=== PATIENT | female | born 1990 | race Caucasian/White ===

== ENCOUNTER 2016-06-15 15:21 | Emergency (ER) | payer BC, MEDICAID ==
[2016-06-15 15:42] VITALS: TEMP 98.1
--- NOTE | 2016-06-15 16:42 | C.PDOC ---
History Of Present Illness 26 yr old female presents to the ER with complaints of right wrist pain for the past 2 days. 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 Reports the pain is exacerbated by movement and relieved by use of ibuprofen 3 times a day. Patient denies direct trauma, injury, chest pain, back pain, weakness or numbness. Time Seen by Provider: 06/15/16 15:48 Chief Complaint (Nursing): Finger,Hand,&Wrist History/Exam Limitations: no limitations Onset/Duration Of Symptoms: Days (2) Current Symptoms Are (Timing): Still Present Past Medical History Reviewed: Historical Data, Nursing Documentation, Vital Signs Vital Signs: Last Vital Signs Temp 98.1 F 06/15/16 15:40 Pulse 100 H 06/15/16 15:40 Resp 17 06/15/16 15:40 BP 117/80 06/15/16 15:40 Pulse Ox 100 06/15/16 17:55 Surgical History: Appendectomy Family History: States: No Known Family Hx - Social History Hx Alcohol Use: No Hx Substance Use: No - Immunization History Hx Tetanus Toxoid Vaccination: No Hx Influenza Vaccination: No Hx Pneumococcal Vaccination: No Review Of Systems Except As Marked, All Systems Reviewed And Found Negative. Cardiovascular: Negative for: Chest Pain Musculoskeletal: Positive for: Hand Pain (Right wrist pain ). Negative for: Back Pain Neurological: Negative for: Weakness, Numbness Physical Exam - Physical Exam Appears: Non-toxic, No Acute Distress Skin: Warm, Dry, No Rash Head: Atraumatic, Normacephalic Oral Mucosa: Moist Neck: Normal, Normal ROM, Supple Chest: Symmetrical, No Tenderness Cardiovascular: Rhythm Regular, No Murmur Respiratory: Normal Breath Sounds, No Rales, No Rhonchi, No Stridor, No Wheezing Gastrointestinal/Abdominal: No Soft Extremity: Other (Right Wrist - Tenderness to the wrist radaiting to the thumb. Tenderness on supine and planter. Snuff box tenderness. ) ED Course And Treatment O2 Sat by Pulse Oximetry: 100 - Other Rad X-Ray - Right Wrist X-Ray: Viewed By Me, Read By Radiologist Interpretation: PROCEDURE: Right Wrist Radiographs. . HISTORY: non traumatic pain. COMPARISON: None. FINDINGS: BONES: Normal. No fracture. JOINTS: Normal. No dislocation. SOFT TISSUES: Normal. OTHER FINDINGS: Approximately 2 mm negative ulnar variance. IMPRESSION: No fracture or gross osteoarthrosis.If clinical symptoms persist and warrant, consider more sensitive evaluation with MRI . Disposition Counseled Patient/Family Regarding: Diagnosis, Need For Followup - Disposition Referrals: [facility] [Outside] Disposition: HOME/ ROUTINE Disposition Time: 17:44 Prescriptions: Naproxen [Naprosyn] 1 tab PO BID PRN #25 tab PRN Reason: Pain Naproxen [Naprosyn] 1 tab PO BID PRN #25 tab PRN Reason: Pain Instructions: Tendinitis (ED) - Clinical Impression Clinical Impression: Tendonitis of wrist, right - Scribe Statement The provider has reviewed the documentation as recorded by the Lani Liang Provider Attestation: All medical record entries made by the Lani were at my direction and personally dictated by me. I have reviewed the chart and agree that the record accurately reflects my personal performance of the history, physical exam, medical decision making, and the department course for this patient. I have also personally directed, reviewed, and agree with the discharge instructions and disposition.
--- NOTE | 2016-06-15 17:08 | RAD ---
PROCEDURE: Right Wrist Radiographs. HISTORY: non traumatic pain COMPARISON: None. FINDINGS: BONES: Normal. No fracture. JOINTS: Normal. No dislocation. SOFT TISSUES: Normal. OTHER FINDINGS: Approximately 2 mm negative ulnar variance IMPRESSION: No fracture or gross osteoarthrosis.If clinical symptoms persist and warrant, consider more sensitive evaluation with MRI .
[2016-06-15 17:59] VITALS: BP 124/75; PULSE 85; RESP 18; O2SAT 98
== END 2016-06-15 18:01 | disposition home or self-care (01) ==
LOC: C.ER 15:21
DX: M77.9 Enthesopathy, unspecified (principal)

== ENCOUNTER 2017-08-22 12:29 | Emergency (ER) | payer MEDICAID ==
[2017-08-22 12:37] VITALS: BP 106/67; PULSE 84; RESP 16; TEMP 98.4; O2SAT 98
[2017-08-22] MEDS ORDERED: Tmp-Smz 800 mg-160 mg DS Tab PO STA (12:54)
[2017-08-22] MEDS ORDERED: Lidocaine 1% Inj (20ml) INFIL STA (12:54)
[2017-08-22] MEDS ORDERED: Tmp-Smz 800 mg-160 mg DS Tab ONE (13:01)
[2017-08-22] MEDS ORDERED: Lidocaine Hydrochloride 5 ML INJ ONE (13:02)
--- NOTE | 2017-08-22 13:24 | C.PDOC ---
History Of Present Illness 27 year old female presents to the ED for evaluation of a lump to her tailbone area noted two days ago. Patient reports history of prior cysts to the area 6 months ago, that needed drainage. Patient denies fever, chills. Time Seen by Provider: 08/22/17 12:50 Chief Complaint (Nursing): Abnormal Skin Integrity History Per: Patient History/Exam Limitations: no limitations Onset/Duration Of Symptoms: Days (2) Current Symptoms Are (Timing): Still Present Additional History Per: Patient Past Medical History Reviewed: Historical Data, Nursing Documentation, Vital Signs Vital Signs: Last Vital Signs Temp 98.4 F 08/22/17 12:35 Pulse 84 08/22/17 12:35 Resp 16 08/22/17 13:38 BP 106/67 08/22/17 12:35 Pulse Ox 98 08/22/17 18:26 - Medical History PMH: No Chronic Diseases Surgical History: Appendectomy Family History: States: Unknown Family Hx - Social History Hx Alcohol Use: No Hx Substance Use: No - Immunization History Hx Tetanus Toxoid Vaccination: No Hx Influenza Vaccination: No Hx Pneumococcal Vaccination: No Review Of Systems Constitutional: Negative for: Fever, Chills Skin: Positive for: Other (lump noted to tailbone area ) Physical Exam - Physical Exam Appears: Non-toxic, No Acute Distress Skin: Normal Color, Warm, Dry, Other (1x2cm tender, fluctuant, and mildly erythematous mass to left conor cleft ) Extremity: Normal ROM Neurological/Psych: Oriented x3, Normal Speech, Normal Cognition Gait: Steady ED Course And Treatment O2 Sat by Pulse Oximetry: 98 (on RA) Pulse Ox Interpretation: Normal - Incision & Drainage Of Abscess Anesthesia: Lidocaine 1% Prep Used: Sterile Water, Betadine Procedure: Incised W/Scalpel Blade#: (11), Drained Pus, Irrigated Cavity W/ Saline Medical Decision Making Medical Decision Making: Impression: 27 year old female with lump to tailbone area Plan: * Bactrim PO * Incision and Drainage * reassess and disposition Progress: Bactrim PO administered. Fluctuant area to left conor cleft. Local anesthesia achieved with 1% lidocaine without epinephrine. Area cleaned with 10% betadine solution. Incision made with sterile #11 blade scalpel. Small amount of purulent discharge expressed. Wound dressed with dry, sterile dressing. Pt tolerated well. On re-examination, patient is resting comfortably, showing no signs of distress and is stable for discharge with antibiotics. Patient is advised to follow up with her PMD within 1-2 days for further evaluation and/or return to the ED if symptoms persist or worsen. Disposition Counseled Patient/Family Regarding: Diagnosis, Need For Followup, Rx Given - Disposition Referrals: Farzaneh Lobo MD [Medical Doctor] - Mickey Steele MD [Staff Provider] - Disposition: HOME/ ROUTINE Disposition Time: 13:22 Condition: STABLE Additional Instructions: Take antibiotics as prescribed Change dressing daily Follow up with primary doctor or surgeon for further care Prescriptions: Cephalexin [cephalexin] 500 mg PO Q12 #14 cap Ibuprofen [Motrin] 600 mg PO Q8 #30 tab Sulfamethoxazole/Trimethoprim [Bactrim DS 800 mg-160 mg] 1 tab PO BID #14 tab Instructions: Abscess Incision and Drainage (DC) Forms: T[employer] (Rwandan) - POA Present On Arrival: None - Clinical Impression Clinical Impression: Pilonidal abscess of conor cleft - PA / PANEL COVERER / Resident Statement MD/DO has reviewed & agrees with the documentation as recorded. - Scribe Statement The provider has reviewed the documentation as recorded by the Scribe (Giuliana Hogue) All medical record entries made by the Scribe were at my direction and personally dictated by me. I have reviewed the chart and agree that the record accurately reflects my personal performance of the history, physical exam, medical decision making, and the department course for this patient. I have also personally directed, reviewed, and agree with the discharge instructions and disposition.
== END 2017-08-22 13:38 | disposition home or self-care (01) ==
LOC: C.ER 12:29
DX: L05.01 Pilonidal cyst with abscess (principal)

== ENCOUNTER 2017-09-09 11:09 | Day surgery (SDC) | payer MEDICAID ==
[2017-09-07 10:31] VITALS: BMI 27.4
[2017-09-09] MEDS ORDERED: ceFAZolin 1 gm in NS 1 GM/100 ML BAG IVPB ONE (12:47)
[2017-09-09] MEDS ORDERED: Midazolam 2 MG/2 ML VIAL ONE (12:48)
[2017-09-09] MEDS ORDERED: Propofol 10 mg/ml Inj (20 ML) ONE ×2 (12:50)
--- NOTE | 2017-09-09 13:54 | PCM.SURG1 ---
Surgeon's Initial Post Op Note - Surgeon's Notes Surgeon: Dr. Grimes Rod Straightener: Tamy Mercado PGY2 Type of Anesthesia: General Endo Anesthesia Administered By: ADAMS Pre-Operative Diagnosis: L buttocks abscess Operative Findings: coccygeal cyst 2x1cm Post-Operative Diagnosis: coccygeal cyst Operation Performed: excision of coccygeal cyst primary closure Specimen/Specimens Removed: coccygeal cyst 2x1cm Estimated Blood Loss: EBL {In ML}: 10 Blood Products Given: N/A Drains Used: No Drains Post-Op Condition: Good Date of Surgery/Procedure: 09/09/17 Time of Surgery/Procedure: 13:54
[2017-09-09] MEDS ORDERED: Oxycodone/Acetaminophen 5/325 mg Tab PO PRN (13:58)
[2017-09-09] MEDS: HYDROmorphone 0.5 mg/0.5 ml ISec IVP PRN ×4 (14:05→14:57)
[2017-09-09 15:10] VITALS: TEMP 97.8
[2017-09-09 16:12] VITALS: RESP 16
[2017-09-09 18:14] VITALS: BP 124/77; PULSE 96; O2SAT 99
--- NOTE | 2017-09-11 00:59 | OP ---
PROCEDURE DATE: 09/09/2017 PREOPERATIVE DIAGNOSIS: Left buttock pilonidal abscess. POSTOPERATIVE DIAGNOSIS: Infected coccygeal cyst. PROCEDURE: Excision of pilonidal coccygeal cyst. SURGEON: Arnel Grimes MD. CHIEF UNDERWRITER: Dr. Mercado. TYPE OF ANESTHESIA: General. ANESTHESIOLOGIST: FARNAZ Branham. DESCRIPTION OF PROCEDURE: With the patient anesthetized, she was placed in the prone position with the buttock taped slightly apart. The patient was noted to have an area of fluctuant swelling on the left medial buttock just lateral to the gluteal crease and a crescent shaped incision was marked including this area, which would allow the right buttock skin to be extended to the left of the gluteal crease. The crescentic shaped skin incision was made and taken down through the full thickness of skin and the indurated subcutaneous tissue was then dissected downwards surrounding the area of induration. As the midline was reached, there was noted to be a well formed inclusion type cyst extending down towards the coccyx and incontinuity with the cutaneous eruption. This cyst was completely excised along with the narrower area of indurated subcutaneous tissue. When this had been completed, hemostasis was achieved with cautery and the deep subcutaneous tissues were approximated with 3-0 Vicryl interrupted sutures. The flaps were freed up on each side just superficial to the muscle fascial plain allowing the skin to be closed with a combination of mattress sutures of 3-0 Prolene and simple interrupted sutures of 5-0 Prolene. A dry sterile dressing with fluffy compression was applied. The patient tolerated the procedure well and transferred to the recovery room in stable condition. Estimated blood loss for the procedure was 10 mL. Arnel Grimes MD
== END 2017-09-09 18:05 | disposition home or self-care (01) ==
LOC: C.SDS 11:09
PROVIDERS: ATTEND Specialist
DX: L05.91 Pilonidal cyst without abscess (principal)
CPT/HCPCS: 11770; 88304; J0690; J1170; J2250; J2704; J3010

== ENCOUNTER 2017-11-23 02:49 | Emergency (ER) | payer MEDICAID ==
[2017-11-23 02:49] VITALS: BMI 27.4
[2017-11-23 02:56] VITALS: TEMP 97.5
[2017-11-23 03:23] LABS: URINE BILIRUBIN NEGATIVE (NEGATIVE); URINE GLUCOSE (UA) NORMAL (Normal); URINE PROTEIN NEGATIVE (NEGATIVE); URINE UROBILINOGEN NORMAL mg/dL (0.2-1.0)
[2017-11-23 03:38] LABS: URINE CLARITY SLIGHT-CLOUDY (Clear); URINE COLOR LIGHT RED (YELLOW)
[2017-11-23] MEDS ORDERED: Sodium Chloride 0.9% 500 ML IV ONE (03:38)
[2017-11-23 03:39] LABS: HCG,QUALITATIVE URINE NEGATIVE (NEGATIVE); URINE BLOOD 3+ (NEGATIVE); URINE LEUKOCYTE ESTERASE TRACE Leu/uL (Negative)
[2017-11-23] MEDS ORDERED: Sodium Chloride 0.9% 1,000 ML ONE (03:45)
[2017-11-23 03:54] LABS: BASO # 0.1 K/uL (0.0-0.2); BASO % 1.3 % (0.0-2.0); EOS # 0.1 K/uL (0.0-0.7); EOS % 1.3 % (0.0-4.0); HEMOGLOBIN 11.7 g/dL (11.0-16.0); LYMPH # 2.3 K/uL (1.0-4.3); LYMPH % 31.1 % (20.0-40.0); MEAN CORPUSCULAR HEMOGLOBIN 26.3 pg (27.0-31.0); MEAN CORPUSCULAR HGB CONC 34.2 g/dL (33.0-37.0); MEAN PLATELET VOLUME 7.9 fL (7.2-11.7); MONO # 0.8 K/uL (0.0-0.8); MONO % 10.2 % (0.0-10.0); NEUT # 4.2 K/uL (1.8-7.0); NEUT % 56.1 % (50.0-75.0); NRBC % 0.1 % (0.0-2.0); RBC 4.46 Mil/uL (3.80-5.20); RED CELL DISTRIBUTION WIDTH 14.2 % (11.5-14.5); WHITE BLOOD COUNT 7.4 K/uL (4.8-10.8)
[2017-11-23 04:07] LABS: ALB/GLOB RATIO 1.4 (1.0-2.1); ALBUMIN 4.3 g/dL (3.5-5.0); ALT/SGPT 22 U/L (9-52); AST/SGOT 15 U/L (14-36); BLOOD UREA NITROGEN 13 mg/dL (7-17); CALCIUM 9.5 mg/dl (8.6-10.4); GFR NON-AFRICAN AMERICAN > 60
--- NOTE | 2017-11-23 04:22 | C.PDOC ---
History Of Present Illness 27 year old female presents to the ED c/o suprapubic pain that started earlier today. Patient reports her menses started yesterday, she usually has pain with her menses. Patient states this time pain feel different, stronger. Patient states she did not take any medication for her pain. Patient denies fever, chills, nausea, vomit, dysuria, hematuria, back pain. Time Seen by Provider: 11/23/17 03:10 Chief Complaint (Nursing): Abdominal Pain History Per: Patient History/Exam Limitations: no limitations Onset/Duration Of Symptoms: Hrs Current Symptoms Are (Timing): Still Present Location Of Pain/Discomfort: Suprapubic Radiation Of Pain To:: None Quality Of Discomfort: "Pain" Associated Symptoms: Urinary Symptoms. denies: Nausea, Vomiting, Diarrhea Exacerbating Factors: None Alleviating Factors: None Recent travel outside of the [place]: No Additional History Per: Patient Abnormal Vaginal Bleeding: No Last Menstral Period: now Past Medical History Reviewed: Historical Data, Nursing Documentation, Vital Signs Vital Signs: Last Vital Signs Temp 97.5 F L 11/23/17 03:01 Pulse 81 11/23/17 03:01 Resp 18 11/23/17 03:01 BP 129/85 11/23/17 03:01 Pulse Ox 99 11/23/17 04:27 - Medical History PMH: Asthma (SEASONAL), Kidney Stones Surgical History: Appendectomy Family History: States: Unknown Family Hx - Social History Hx Alcohol Use: No Hx Substance Use: No - Immunization History Hx Tetanus Toxoid Vaccination: No Hx Influenza Vaccination: No Hx Pneumococcal Vaccination: No Review Of Systems Constitutional: Negative for: Fever, Chills Gastrointestinal: Positive for: Abdominal Pain. Negative for: Nausea, Vomiting Genitourinary: Negative for: Dysuria, Hematuria Skin: Negative for: Rash Neurological: Negative for: Weakness, Numbness Physical Exam - Physical Exam Appears: Non-toxic, No Acute Distress Skin: Normal Color, Warm, Dry Head: Atraumatic, Normacephalic Eye(s): bilateral: Normal Inspection Neck: Normal ROM, Supple Chest: Symmetrical Cardiovascular: Rhythm Regular Respiratory: Normal Breath Sounds, No Rales, No Rhonchi, No Wheezing Gastrointestinal/Abdominal: Soft, Tenderness (suprapubic), No Distention, No Guarding, No Rebound, Other (RLQ scar s/p appendectomy)) Back: No CVA Tenderness Extremity: Normal ROM, No Tenderness, No Swelling Neurological/Psych: Oriented x3, Normal Speech Gait: Steady ED Course And Treatment - Laboratory Results Result Diagrams: 11/23/17 03:51 11/23/17 03:51 O2 Sat by Pulse Oximetry: 99 (ON RA) Pulse Ox Interpretation: Normal Progress Note: Plan: - Labs. - Iv fluids. - Toradol 30 mg IVP. - UA. Patient is resting comfortably, abdomen remains soft, and patient is tolerating PO. Patient feels comfortable going home. Patient will be discharged home. Disposition Counseled Patient/Family Regarding: Diagnosis, Need For Followup, Rx Given - Disposition Referrals: [facility] [Outside] Disposition: HOME/ ROUTINE Disposition Time: 04:37 Condition: STABLE Additional Instructions: Take medications as dirrected Return to ER if woose Prescriptions: Ibuprofen [Motrin] 600 mg PO Q6H #20 tab Instructions: Menstrual Cramps (DC) Forms: [employer] (Brazilian) - Clinical Impression Clinical Impression: Dysmenorrhea - PA / SPECIAL SHOPPER / Resident Statement MD/DO has reviewed & agrees with the documentation as recorded. - Scribe Statement The provider has reviewed the documentation as recorded by the Scribe Jonathan Delgado All medical record entries made by the Scribe were at my direction and personally dictated by me. I have reviewed the chart and agree that the record accurately reflects my personal performance of the history, physical exam, medical decision making, and the department course for this patient. I have also personally directed, reviewed, and agree with the discharge instructions and disposition.
[2017-11-23 05:08] VITALS: BP 103/67; PULSE 73; RESP 20; O2SAT 100
== END 2017-11-23 05:07 | disposition home or self-care (01) ==
LOC: C.ER 02:49
DX: N94.6 Dysmenorrhea, unspecified (principal)
CPT/HCPCS: 80053; 81001; 84703; 85025; 96361; 96374; 99283; J1885; J7040

== ENCOUNTER 2017-11-27 17:43 | Emergency (ER) | payer MEDICAID ==
[2017-11-27 17:43] VITALS: BMI 27.4
[2017-11-27 17:56] VITALS: O2SAT 100
[2017-11-27 18:58] LABS: SQUAMOUS EPITHIAL 2 /hpf (0-5); URINE BACTERIA RARE (<OCC); URINE BILIRUBIN NEGATIVE (NEGATIVE); URINE BLOOD 3+ (NEGATIVE); URINE CLARITY Hazy (Clear); URINE COLOR Yellow (YELLOW); URINE GLUCOSE (UA) NORMAL (Normal); URINE LEUKOCYTE ESTERASE TRACE Leu/uL (Negative); URINE PROTEIN 1+ mg/dL (NEGATIVE); URINE UROBILINOGEN NORMAL mg/dL (0.2-1.0)
[2017-11-27 18:59] LABS: HCG,QUALITATIVE URINE NEGATIVE (NEGATIVE)
[2017-11-27] MEDS ORDERED: Sodium Chloride 0.9% 1,000 ML IV ONE (19:00)
[2017-11-27 19:20] LABS: BASO % 0.4 % (0.0-2.0); EOS % 0.4 % (0.0-4.0); HEMOGLOBIN 11.8 g/dL (11.0-16.0); LYMPH # 1.3 K/uL (1.0-4.3); LYMPH % 10.9 % (20.0-40.0); MEAN CELL VOLUME 78.4 fL (81.0-99.0); MEAN CORPUSCULAR HEMOGLOBIN 25.7 pg (27.0-31.0); MEAN CORPUSCULAR HGB CONC 32.8 g/dL (33.0-37.0); MEAN PLATELET VOLUME 8.6 fL (7.2-11.7); MONO # 0.7 K/uL (0.0-0.8); MONO % 5.7 % (0.0-10.0); NEUT # 9.5 K/uL (1.8-7.0); NEUT % 82.6 % (50.0-75.0); NRBC % 0.1 % (0.0-2.0); RBC 4.59 Mil/uL (3.80-5.20); RED CELL DISTRIBUTION WIDTH 14.3 % (11.5-14.5); WHITE BLOOD COUNT 11.5 K/uL (4.8-10.8)
[2017-11-27 19:33] LABS: ALB/GLOB RATIO 1.2 (1.0-2.1); ALBUMIN 4.4 g/dL (3.5-5.0); ALT/SGPT 17 U/L (9-52); AST/SGOT 21 U/L (14-36); BLOOD UREA NITROGEN 11 mg/dL (7-17); GFR NON-AFRICAN AMERICAN > 60; LIPASE 42 U/L (23-300)
--- NOTE | 2017-11-27 20:15 | C.PDOC ---
"History Of Present Illness 27 year old female presents to the ER with a complaint of left lower quadrant pain and left lower back pain since this morning. Patient states the pain is constant and radiates from the back to the front but is not associated with vomiting, diarrhea, dysuria, or hematuria. She was seen on 11/23/17 for the same complaint and diagnosed with painful menstrual cramps. Time Seen by Provider: 11/27/17 19:08 Chief Complaint (Nursing): Abdominal Pain History Per: Patient History/Exam Limitations: no limitations Onset/Duration Of Symptoms: Hrs Current Symptoms Are (Timing): Still Present Location Of Pain/Discomfort: LLQ, Other (Left lower back) Radiation Of Pain To:: Other (From left lower back and left lower abdomen) Quality Of Discomfort: Unable To Describe Associated Symptoms: denies: Vomiting, Diarrhea, Urinary Symptoms Exacerbating Factors: None Alleviating Factors: None Recent travel outside of the [place]: No Abnormal Vaginal Bleeding: No Past Medical History Reviewed: Historical Data, Nursing Documentation, Vital Signs Vital Signs: Last Vital Signs Temp 99.0 F 11/27/17 17:53 Pulse 108 H 11/27/17 17:53 Resp 20 11/27/17 17:53 BP 121/76 11/27/17 17:53 Pulse Ox 100 11/27/17 20:53 - Medical History PMH: Asthma (SEASONAL), Kidney Stones Surgical History: Appendectomy Family History: States: Unknown Family Hx - Social History Hx Alcohol Use: No Hx Substance Use: No - Immunization History Hx Tetanus Toxoid Vaccination: No Hx Influenza Vaccination: No Hx Pneumococcal Vaccination: No Review Of Systems Except As Marked, All Systems Reviewed And Found Negative. Gastrointestinal: Positive for: Abdominal Pain Musculoskeletal: Positive for: Back Pain Physical Exam - Physical Exam Appears: Non-toxic, Other (Uncomfortable, Moderate pain) Skin: Normal Color, Warm, Dry Head: Atraumatic, Normacephalic Eye(s): bilateral: Normal Inspection Oral Mucosa: Moist Chest: Symmetrical, No Tenderness Cardiovascular: Rhythm Regular (Tachycardic) Respiratory: Normal Breath Sounds, No Rales, No Rhonchi, No Wheezing Gastrointestinal/Abdominal: Soft, Tenderness (LLQ), No Guarding, No Rebound Back: CVA Tenderness (Left) Neurological/Psych: Oriented x3, Normal Speech ED Course And Treatment - Laboratory Results Result Diagrams: 11/27/17 19:17 11/27/17 19:17 O2 Sat by Pulse Oximetry: 100 (Room air) Pulse Ox Interpretation: Normal - CT Scan/US ct abd/pelvis Other Rad Studies (CT/US): Read By Radiologist, Radiology Report Reviewed CT/US Interpretation: Name: SHAWN FIGUEROA Age: 27Years F Date: 11/27/2017. Requesting Physician: JHONY WISE : 1990. [facility] Procedure Ordered As Accession Number of. Images. CT ABDOMEN/PELVIS. WO. CT ABD PELVIS W O PO OR IV. CONT. [id number]. J. 588. Provided Clinical History: LLQ PAIN, R/O KIDNEY STONE. EXAM: CT Abdomen and Pelvis Without Intravenous Contrast. CLINICAL HISTORY: 27 years old, female; Pain; Abdominal pain; Localized; Left lower quadrant (llq); Additional info: Llq. pain, R/O kidney stone. TECHNIQUE: Axial computed tomography images of the abdomen and pelvis without intravenous contrast. All CT. scans at this facility use at least one of these dose optimization techniques: automated exposure. control; mA and/or kV adjustment per patient size (includes targeted exams where dose is matched to. clinical indication); or iterative reconstruction. Coronal and sagittal reformatted images were created and reviewed. COMPARISON: No relevant prior studies available. FINDINGS: Lung bases: Unremarkable. No mass. No consolidation. ABDOMEN: Liver: Unremarkable. No suspicious lesions are seen. Gallbladder and bile ducts: The gallbladder is contracted but otherwise normal. Pancreas: Unremarkable. No ductal dilation. Spleen: Unremarkable. No splenomegaly. Adrenals: Unremarkable. No mass. Kidneys and ureters: There is moderate hydronephrosis hydroureter of the left collecting system. secondary to a partially obstructing stone located in the left UVJ, 4 mm. Multiple small nonobstructing. renal stones are present bilaterally. Stomach and bowel: Bowel loops appear within normal limits, no signs of wall thickening, mucosal. edema, or bowel distention. PELVIS: SHAWN FIGUEROA | Preliminary Radiology Report. CONFIDENTIALITY STATEMENT. This report is intended only for the use of the referring physician, and only in accordance with law, If you received this in error, call [phone]. Page 2 of 2. Appendix: The appendix is not definitively visualized. However, no secondary signs of appendicitis. are present. Bladder: Unremarkable. No stones. Reproductive: Unremarkable as visualized. ABDOMEN and PELVIS: Intraperitoneal space: Unremarkable. No free air. No significant fluid collection. Bones/joints: The spine, sacroiliac joints, and hip joints are normal. No acute fracture. No. dislocation. Soft tissues: Unremarkable. Vasculature: Unremarkable. No abdominal aortic aneurysm. Lymph nodes: Unremarkable. No enlarged lymph nodes. IMPRESSION: Partial obstruction of left kidney secondary to a left UVJ stone. Bilateral nephrolithiasis. No. additional acute abnormalities. Thank you for allowing us to participate in the care of your patient. Dictated and Authenticated by: Brennen Bowers MD. 11/27/2017 8:51 PM Eastern Time ([place] & [place]) Progress Note: CT abd/pel, blood work, and urinalysis ordered. Toradol and IV fluids administered. Disposition Counseled Patient/Family Regarding: Studies Performed, Diagnosis, Need For Followup, Rx Given - Disposition Referrals: Santosh Abbott Jr., MD [Staff Provider] - Eda Whittington [Medical Doctor] - Disposition: HOME/ ROUTINE Disposition Time: 21:35 Condition: STABLE Additional Instructions: FOLLOW UP WITH UROLOGY WITHIN 1 WEEK DRINK PLENTY OF FLUIDS USE MEDICATIONS DIRECTED RETURN TO ER IF SYMPTOMS WORSEN Prescriptions: Hydrocodone/Acetaminophen [Hydrocodone-Acetamin 5-325 mg] 1 each PO Q6 PRN #15 tablet PRN Reason: PAIN Tamsulosin [Flomax] 0.4 mg PO DAILY #5 cap Instructions: Renal Colic (DC), Kidney Stones (DC) Forms: [employer] (Cambodian) Print Language: BELARUSIAN - Clinical Impression Clinical Impression: Kidney stone on left side, Renal colic on left side, Hydronephrosis - Scribe Statement The provider has reviewed the documentation as recorded by the Scriblandry Gonzalez All medical record entries made by the Scribe were at my direction and personally dictated by me. I have reviewed the chart and agree that the record accurately reflects my personal performance of the history, physical exam, medical decision making, and the department course for this patient. I have also personally directed, reviewed, and agree with the discharge instructions and disposition."
[2017-11-27 21:41] VITALS: BP 119/81; PULSE 68; RESP 18; TEMP 98.6
--- NOTE | 2017-11-28 11:15 | CT ---
Date of service: 11/27/2017 PROCEDURE: CT Abdomen and Pelvis with Oral contrast. HISTORY: LLQ PAIN, R/O KIDNEY STONE COMPARISON: None. No prior study available for comparison. . TECHNIQUE: Contiguous axial images of the abdomen and pelvis performed without oral or intravenous contrast material. Additional 2D sagittal and coronal reformats generated. This CT exam was performed using one or more of the following dose reduction techniques: Automated exposure control, adjustment of the mA and/or kV according to patient size, and/or use of iterative reconstruction technique. Radiation dose: Total exam DLP = 677.88 mGy-cm.. FINDINGS: LOWER THORAX: Small hiatal hernia LIVER: Liver is upper limits of normal in size measuring just over 18 cm in CC dimension. No gross lesion or ductal dilatation. GALLBLADDER AND BILE DUCTS: Unremarkable. PANCREAS: Unremarkable. No mass. No ductal dilatation. SPLEEN: Unremarkable. No splenomegaly. ADRENALS: Unremarkable. KIDNEYS AND URETERS: 4 mm calculus left the UVJ with moderate left-sided hydronephrosis. Additionally, there are multiple punctate calcifications seen in the midpole collecting system left kidney. 6.6 x 4.8 mm calculus upper pole collecting system right kidney Multiple on additional punctate calcifications also seen in the right renal collecting system the largest measuring approximately BLADDER: Urinary bladder is physiologically distended. REPRODUCTIVE: Unremarkable. APPENDIX: Appendix is not visualized on this exam. BOWEL: Unremarkable. No obstruction. No gross mural thickening. PERITONEUM: Unremarkable. No fluid collection. No free air. Tiny fat containing umbilical hernia LYMPH NODES: Unremarkable. No enlarged lymph nodes. VASCULATURE: Unremarkable. No aortic aneurysm. BONES: No fracture or destructive lesion. OTHER FINDINGS: None. IMPRESSION:
== END 2017-11-27 22:09 | disposition home or self-care (01) ==
LOC: C.ER 17:43
DX: N13.2 Hydronephrosis with renal and ureteral calculous obstruction (principal)
CPT/HCPCS: 74176; 80053; 81001; 83690; 84703; 85025; 96361; 96374; 96375; 99284; J1885; J2270; J7030